=== PATIENT | female | born 1990 | race Caucasian/White ===

== ENCOUNTER 2022-02-26 07:06 | Emergency (ER) | payer OTHER ==
[~2022-02-26] VITALS: Ht 172.7 cm; Wt 82.8 kg
[2022-02-26] MEDS ORDERED: ORPH-16 PO (07:41)
--- NOTE | 2022-02-26 07:44 | PHYS DOC ---
Past History Past Medical History: Migraines Additional Past Surgical Histo: c section, lumbar microdiscectomy Smoking: Non-smoker Alcohol Use: None Drug Use: None General Adult EDM: Chief Complaint: Neck Pain HPI: HPI: Pt is a 32 yo F who presents c/o neck pain x1 hour. Pt was throwing a weighted ball over her head during exercise and immediately had pain. Pt reports L neck and shoulder pain. Reports pain with flexion and L rotation. Pt had a fall on ice a month ago and injured her neck she has been seeing PT for this injury since then. She recently had an MRI of her brain for migraines but has not had any imaging on her neck. She denies numbness/tingling/weakness. Review of Systems: Review of Systems: Constitutional: Denies fever or chills Eyes: Denies redness or eye pain HENT: Denies nasal congestion or sore throat Respiratory: Denies cough or shortness of breath Cardiovascular: Denies chest pain or palpitations GI: Denies abdominal pain, nausea, or vomiting : Denies dysuria or hematuria Musculoskeletal: Denies back pain; Reports L neck and shoulder pain Integument: Denies rash or skin lesions Neurologic: Denies headache, focal weakness or sensory changes Complete systems were reviewed and found to be within normal limits, except as documented in this note. Allergies: Allergies: Allergies Coded Allergies Type Severity Reaction Last Updated Verified No Known Drug Allergies 02/26/22 No Physical Exam: PE: Constitutional: Well developed, well nourished, no acute distress, non-toxic appearance HENT: Normocephalic, atraumatic Eyes: PERRL, EOMI, conjunctiva normal, no discharge Neck: Decreased ROM secondary to pain, L paraspinal muscle spasm, L trapezius muscle spasm, tenderness to palpation over L paraspinals and trapezius, supple Lungs & Thorax: No respiratory distress, equal chest rise and fall Abdomen: Soft, no tenderness Skin: Warm, dry, no erythema, no rash Back: No tenderness, no CVA tenderness Extremities: No tenderness, ROM intact, no edema Neurologic: Alert and oriented X 3, normal motor function, normal sensory function, no focal deficits noted Psychologic: Affect normal, judgment normal EKG: EKG: [] Radiology/Procedures: Radiology/Procedures: [] Heart Score: C/O Chest Pain: N/A Course & Med Decision Making: Course & Med Decision Making 32 yo F with neck pain-likely acute on chronic. Pt given toradol and norflex for muscle spasm and pain. Ice pack applied. Pt given Rx for Norflex. Patient stable for discharge with outpatient follow-up with PCP/pain management. Pain management referral provided. Discussed findings and plan with patient, who acknowledges understanding and agreement. Denise Disclaimer: Denise Disclaimer: This electronic medical record was generated, in whole or in part, using a voice recognition dictation system. Departure Departure: Impression: Primary Impression: Neck pain Disposition: HOME / SELF CARE / HOMELESS Condition: STABLE Referrals: ALEX DELA CRUZ (PCP) Patient Instructions: Cervical Strain and Sprain with Rehab-Sports[facility] Additional Instructions: ICE area of discomfort 20 min on then leave off next 20 mins. Repeat several times daily as needed for next few days. Take over the counter Tylenol and/or Ibuprofen for pain or discomfort. Please call Dr. Adarsh Murphy (pain management at [facility] for further evaluation and treatment at [address] [place] [address] Scripts Orphenadrine Citrate (ORPHENADRINE CITRATE) 100 Mg Tablet.er 1 TAB PO BID PRN for MUSCLE PAIN, #14 TAB 0 Refills Prov: NAILA WADSWORTH DO 02/26/22 NAILA WADSWORTH DO Feb 26, 2022 07:44
[2022-02-26] MEDS ORDERED: KETOROLAC 30 MG/ML VIAL. IM ONE (07:45)
[2022-02-26] MEDS ORDERED: ORPHENADRINE CITRATE 60 MG/2 ML VIAL. IM ONE (07:45)
[2022-02-26 08:03] VITALS: BP 146/81
== END 2022-02-26 08:05 | disposition home or self-care (01) ==
LOC: ER 07:06
DX: M54.2 Cervicalgia (principal); M25.512 Pain in left shoulder; M62.838 Other muscle spasm; G43.909 Migraine, unspecified, not intractable, without status migrainosus
CPT/HCPCS: 96372; 99284; J1885; J2360